=== PATIENT | female | born 1985 | race Hispanic/Latino ===

== ENCOUNTER 2021-04-14 10:55 | Day surgery (SDC) | payer BC ==
[2021-04-14 11:31] VITALS: BMI 29.7
[2021-04-14] MEDS ORDERED: hydrALAZINE 20 MG/ML VIAL SLOW IVP PRN (12:17)
[2021-04-14 12:29] LABS: Bilirubin Neg (Negative); Blood, Urine 10 (Negative); Clarity Clear (Clear); Glucose, Urine (Dipstick) Normal (Negative); Ketone, Urine Negative (Negative); Leukocyte Negative (Negative); Nitrite Negative (Negative); Protein, Urine (Dipstick) Negative (Neg-Trace); Specific Gravity, Urine 1.005 (1.002-1.036); Urobilinogen Normal mg/dL (Less than 2)
[2021-04-14 12:46] LABS: Bacteria/HPF None Seen HPF (None Seen); RBC/HPF 0-3 HPF (0-3); Squamous Epithelial 0-3 HPF (0-3); WBC/HPF 0-3 HPF (0-3)
== END 2021-04-14 13:55 | disposition home or self-care (01) ==
LOC: CSHLD/OP 10:55
PROVIDERS: ATTEND Obstetrics & Gynecology
DX: O44.32 Partial placenta previa with hemorrhage, second trimester (principal); O99.891 Other specified diseases and conditions complicating pregnancy; R10.2 Pelvic and perineal pain; O98.812 Other maternal infectious and parasitic diseases complicating pregnancy, second trimester; B37.3 Candidiasis of vulva and vagina; Z3A.23 23 weeks gestation of pregnancy
CPT/HCPCS: 81001; 87480; 87510; 87660; 99284

== ENCOUNTER 2021-07-05 20:49 | Day surgery (SDC) | payer BC ==
[2021-07-05] MEDS ORDERED: hydrALAZINE 20 MG/ML VIAL SLOW IVP PRN (22:21)
[2021-07-05] MEDS ORDERED: Acetaminophen 500 MG TAB PO SCH (22:30)
== END 2021-07-05 22:47 | disposition home or self-care (01) ==
LOC: CSHLD/OP 20:49
PROVIDERS: ATTEND Obstetrics & Gynecology
DX: O99.891 Other specified diseases and conditions complicating pregnancy (principal); R10.30 Lower abdominal pain, unspecified; O99.353 Diseases of the nervous system complicating pregnancy, third trimester; G43.909 Migraine, unspecified, not intractable, without status migrainosus; Z3A.35 35 weeks gestation of pregnancy

== ENCOUNTER 2021-07-31 08:24 | Outpatient (CLI) | payer BC | END 2021-07-31 08:25 | disposition home or self-care (01) | LOC: CSHLAB 08:24 | PROVIDERS: ATTEND Obstetrics & Gynecology | DX: Z20.822 Contact with and (suspected) exposure to COVID-19 (principal) | CPT/HCPCS: U0003; U0005 ==

== ENCOUNTER 2021-08-03 05:30 | Inpatient (IN) | payer BC ==
[2021-08-03] MEDS ORDERED: Ondansetron PF 4 MG/2 ML Vial IVP PRN ×2 (06:53→15:56)
[2021-08-03] MEDS ORDERED: Methylergonovine 0.2 MG/ML VIAL IM PRN (06:53)
[2021-08-03] MEDS ORDERED: Carboprost 250 MCG/ML AMP IM PRN (06:53)
[2021-08-03] MEDS ORDERED: Diphenoxylate HCl/Atropine Tablet PO PRN (06:53)
[2021-08-03] MEDS ORDERED: hydrALAZINE 20 MG/ML VIAL SLOW IVP PRN (06:53)
[2021-08-03] MEDS ORDERED: Butorphanol Tartrate 1 MG/ML VIAL SLOW IVP PRN (06:53)
[2021-08-03] MEDS ORDERED: Lidocaine 1% (PF) 30 ML VIAL SC PRN (06:53)
[2021-08-03] MEDS ORDERED: Misoprostol 200 MCG TAB PR PRN (06:53)
[2021-08-03] MEDS ORDERED: Promethazine HCl 25 MG/ML VIAL IM PRN ×2 (06:53→15:56)
[2021-08-03] MEDS ORDERED: Lactated Ringer's 1,000 ML IV SCH (07:00)
[2021-08-03] MEDS ORDERED: NS w/ Oxytocin 30 units 500 ML IV SCH ×2 (07:00)
[2021-08-03] MEDS ORDERED: Penicillin G 2.5 MILL.units 2.5 MILL.UNITS in Premix Bag 1 BAG IVPB SCH (07:00)
[2021-08-03] MEDS ORDERED: Penicillin G Potassium 5 MILL.UNITS in Sodium Chloride 0.9% 100 ML IVPB SCH (07:00)
[2021-08-03] MEDS: Misoprostol 100 MCG TAB VAG SCH (07:54)
[2021-08-03] MEDS ORDERED: Bupivacaine 0.25% HCL 30 ML VIAL ONE (08:00)
[2021-08-03 08:14] LABS: Hemoglobin 10.1 g/dL (12.0-15.5); Mean Corpuscular HGB CONC 33.2 g/dL (32.0-36.0); Mean Corpuscular Hemoglobin 26.5 pg (27.0-33.0); Mean Corpuscular Volume 79.8 fl (81.6-98.3); Mean Platelet Volume 10.6 fl (7.4-10.4); Platelet Count 213 10x3/uL (150-450); RBC Distribution Width 15.7 % (11.5-14.5); Red Blood Cell (RBC) Count 3.81 10x6/uL (3.90-5.03); White Blood Cell (WBC) Count 8.3 10x3/uL (3.5-10.5)
[2021-08-03 08:22] VITALS: BMI 33.3
[2021-08-03 09:20] LABS: Hep B Surf Ag Non-Reactive S/CO (NonReactive)
[2021-08-03 09:22] LABS: Syphilis Antibody Nonreactive (Nonreactive); Syphilis Antibody Index 0.03 S/CO (<1.00 Non-Reactive)
[2021-08-03 09:59] LABS: HBSAg Index 0.14 S/CO (0-0.99)
[2021-08-03] MEDS ORDERED: Fentanyl 2 mcg/Bup 0.1% Cadd 100 ML ONE (15:24)
[2021-08-03] MEDS ORDERED: Acetaminophen 325 MG TAB PO PRN (15:56)
[2021-08-03] MEDS ORDERED: diphenhydrAMINE 50 MG/ML VIAL IVP PRN (15:56)
[2021-08-03] MEDS ORDERED: Naloxone HCl 0.4 mg/ml Vial IVP PRN ×2 (15:56)
[2021-08-03] MEDS ORDERED: Moisturizing Cream (Eucerin) 113 GM JAR TOP PRN (15:56)
[2021-08-03] MEDS ORDERED: ePHEDrine Sulfate 50 MG/10 ML VIAL SLOW IVP PRN (15:56)
[2021-08-03] MEDS ORDERED: Lactated Ringer's 500 ML IV PRN (15:56)
[2021-08-03] MEDS ORDERED: Communication Order-Pharmacy FS SCH (16:00)
[2021-08-03] MEDS ORDERED: Fentanyl 2 mcg/Bupivacaine 0.1% Cassette 100 ML EPIDURAL SCH (16:00)
[2021-08-04] MEDS ORDERED: Ondansetron PF 4 MG/2 ML Vial IVP PRN (05:10)
[2021-08-04] MEDS ORDERED: Bisacodyl 10 MG SUPP PR PRN (05:10)
[2021-08-04] MEDS ORDERED: Lanolin Ointment 7 GM TUBE TOP PRN (05:10)
[2021-08-04] MEDS ORDERED: Milk Of Magnesia 30 ML UDCUP PO PRN (05:10)
[2021-08-04] MEDS ORDERED: Benzocaine-Menthol 82.5 ML CAN TOP PRN (05:10)
[2021-08-04] MEDS ORDERED: HYDROcodone/Acetaminophen 5/325 mg Tablet PO PRN (05:10)
[2021-08-04] MEDS ORDERED: hydrALAZINE 20 MG/ML VIAL SLOW IVP PRN (05:10)
[2021-08-04] MEDS ORDERED: Methylergonovine 0.2 MG/ML VIAL IM PRN (05:10)
[2021-08-04] MEDS ORDERED: NS w/ Oxytocin 30 units 500 ML IV SCH (05:30)
[2021-08-04] MEDS: Ibuprofen 800 MG TAB PO SCH ×3 (05:34→21:41)
[2021-08-04] MEDS: Misoprostol 100 MCG TAB VAG SCH ×2 (06:02→06:03)
[2021-08-04] MEDS: Ferrous Sulfate 325 MG TAB PO SCH ×2 (09:46→17:39)
[2021-08-04] MEDS: Docusate 100 MG CAP PO SCH ×2 (09:47→21:41)
[2021-08-04] MEDS: Prenatal Vitamin 1 TAB PO SCH (09:47)
[2021-08-04 11:10] LABS: #Basophils 0.1 10x3/uL (0.0-0.2); #Eosinphils 0.2 10x3/uL (0.0-0.5); #Monocytes 0.8 10x3/uL (0.0-1.1); #Neutrophils 9.1 10x3/uL (1.5-8.4); %Basophils 0.4 % (0.0-2.0); %Eosinophils 1.4 % (0.0-6.0); %Lymphocytes 13.4 % (18.0-47.0); %Monocytes 6.7 % (0.0-10.0); %Neutrophils 77.7 % (40.0-75.0); Hemoglobin 8.9 g/dL (12.0-15.5); Mean Corpuscular HGB CONC 32.8 g/dL (32.0-36.0); Mean Corpuscular Hemoglobin 26.8 pg (27.0-33.0); Mean Corpuscular Volume 81.6 fl (81.6-98.3); Platelet Count 176 10x3/uL (150-450); RBC Distribution Width 15.3 % (11.5-14.5); Red Blood Cell (RBC) Count 3.32 10x6/uL (3.90-5.03); White Blood Cell (WBC) Count 11.8 10x3/uL (3.5-10.5)
[2021-08-04] MEDS: HYDROcodone/Acetaminophen 5/325 mg Tablet PO PRN (21:42)
[2021-08-05] MEDS: Ibuprofen 800 MG TAB PO SCH ×2 (05:02→13:52)
[2021-08-05] MEDS: HYDROcodone/Acetaminophen 5/325 mg Tablet PO PRN (05:04)
[2021-08-05] MEDS: Docusate 100 MG CAP PO SCH (08:22)
[2021-08-05] MEDS: Ferrous Sulfate 325 MG TAB PO SCH (08:23)
[2021-08-05] MEDS: Prenatal Vitamin 1 TAB PO SCH (08:23)
[2021-08-05 10:37] VITALS: BP 97/62; TEMP 98
== END 2021-08-05 19:03 | disposition home or self-care (01) | DRG 806 ==
LOC: CSHLD 05:44 → CSHPP 08-04 04:17
PROVIDERS: ADMIT Obstetrics & Gynecology; ATTEND Obstetrics & Gynecology
PROC: 10907ZC Drainage of Amniotic Fluid, Therapeutic from Products of Conception, Via Natural or Artificial Opening (ICD-10-PCS; 2021-08-03)
PROC: 3E033VJ Introduction of Other Hormone into Peripheral Vein, Percutaneous Approach (ICD-10-PCS; 2021-08-03)
PROC: 10E0XZZ Delivery of Products of Conception, External Approach (ICD-10-PCS; principal; 2021-08-04)
DX: O99.344 Other mental disorders complicating childbirth (principal); O72.2 Delayed and secondary postpartum hemorrhage; Z37.0 Single live birth; D62 Acute posthemorrhagic anemia; Z3A.39 39 weeks gestation of pregnancy; Z90.49 Acquired absence of other specified parts of digestive tract; F41.9 Anxiety disorder, unspecified; O90.81 Anemia of the puerperium; Z20.822 Contact with and (suspected) exposure to COVID-19
CPT/HCPCS: 51702; 85025; 85027; 86780; 86850; 86900; 86901; 87340; J2590; S0020; U0003; U0005